=== PATIENT | male | born 1955 | race Caucasian/White ===

== ENCOUNTER 2020-09-09 13:04 | Emergency (ER) | payer MEDICARE, SELFPAY | END 2020-09-09 17:21 | disposition home or self-care (01) | LOC: CSHERS 13:04 | DX: I73.9 Peripheral vascular disease, unspecified (principal); K75.9 Inflammatory liver disease, unspecified; E80.20 Unspecified porphyria; I10 Essential (primary) hypertension; F17.210 Nicotine dependence, cigarettes, uncomplicated; Z79.899 Other long term (current) drug therapy; M79.605 Pain in left leg; M79.604 Pain in right leg | CPT/HCPCS: 93923; 93970 ==

== ENCOUNTER 2020-09-26 11:41 | Outpatient (CLI) | payer MEDICARE, SELFPAY ==
[2020-09-26 13:50] LABS: INR-International Normal Ratio 0.9; PTT 28.3 sec (22.0-33.0); Prothrombin Time 9.9 sec (9.5-12.1)
[2020-09-26 13:51] LABS: #Eosinphils 0.1 10x3/uL (0.0-0.5); #Monocytes 0.9 10x3/uL (0.0-1.1); #Neutrophils 4.1 10x3/uL (1.5-8.4); %Basophils 0.4 % (0.0-2.0); %Eosinophils 1.2 % (0.0-6.0); %Lymphocytes 44.2 % (18.0-47.0); %Monocytes 9.6 % (0.0-10.0); %Neutrophils 44.2 % (40.0-75.0); Hemoglobin 17.4 g/dL (13.5-17.5); Mean Corpuscular HGB CONC 33.9 g/dL (32.0-36.0); Mean Corpuscular Hemoglobin 30.4 pg (27.0-33.0); Mean Corpuscular Volume 89.5 fl (81.2-95.1); Mean Platelet Volume 11.2 fl (7.4-10.4); Platelet Count 219 10x3/uL (150-450); RBC Distribution Width 12.4 % (11.5-14.5); Red Blood Cell (RBC) Count 5.73 10x6/uL (4.32-5.72); White Blood Cell (WBC) Count 9.2 10x3/uL (3.5-10.5)
[2020-09-26 13:58] LABS: Anion Gap 13 mmol/L (10-20); BUN (Urea Nitrogen) 22 mg/dL (8.4-25.7); Calc. Creatinine Clearance 0 mL/min (70-130); Calcium 9.6 mg/dL (7.8-10.44); Carbon Dioxide 30 mmol/L (23-31); Chloride 98 mmol/L (98-107); Glucose 94 mg/dL (80-115); Potassium 3.6 mmol/L (3.5-5.1); Sodium 137 mmol/L (136-145)
[2020-09-26 23:52] LABS: SARS-CoV-2 PCR by NAA Not Detected (NotDetected)
== END 2020-09-26 11:42 | disposition home or self-care (01) ==
LOC: CSHLAB 11:41
PROVIDERS: ATTEND Specialist
DX: Z01.818 Encounter for other preprocedural examination (principal); Z20.822 Contact with and (suspected) exposure to COVID-19
CPT/HCPCS: 71046; 80048; 85025; 85610; 85730; 87635; U0003; U0005

== ENCOUNTER → 2020-10-01 | Day surgery (SDC) | payer MEDICARE, SELFPAY ==
[~2020-10-01] MED LIST: Adenosine 6 MG/2 ML VIAL ONE; Bivalirudin 250 MG VIAL ONE; FLU VACC QS2020-21(6MOS UP)/PF 60 MCG/0.5 ML SYRINGE IM ONE; Fentanyl 100 MCG/2 ML VIAL ONE; Heparin 10,000 UNITS/ 10 ML VIAL ONE; Lidocaine 1% (PF) 30 ML VIAL ONE; Midazolam HCl 2 mg/2 ml Vial ONE; Nitroglycerin 50 MG/250 ML BOT 250 ML ONE; Verapamil 5 MG/2 ML VIAL ONE
[2020-10-01 07:13] VITALS: BMI 19.6
== END ==
LOC: CSHSDC 06:29
PROVIDERS: ATTEND Specialist
DX: I74.09 Other arterial embolism and thrombosis of abdominal aorta (principal); I25.10 Atherosclerotic heart disease of native coronary artery without angina pectoris; I73.9 Peripheral vascular disease, unspecified; I10 Essential (primary) hypertension; F17.210 Nicotine dependence, cigarettes, uncomplicated; Z79.899 Other long term (current) drug therapy; Z79.82 Long term (current) use of aspirin; I99.8 Other disorder of circulatory system
CPT/HCPCS: 36140; 36245; 75726; 75736; 93459; 99152; 99153; J0153; J0583; J1644; J2001; J2250; J3010

== ENCOUNTER 2021-02-05 14:09 | Outpatient (CLI) | payer MEDICARE | END 2021-02-05 14:10 | disposition home or self-care (01) | LOC: CSHWCC 14:09 | PROVIDERS: ATTEND Nurse Practitioner Family | DX: I87.312 Chronic venous hypertension (idiopathic) with ulcer of left lower extremity (principal); I87.2 Venous insufficiency (chronic) (peripheral); L97.329 Non-pressure chronic ulcer of left ankle with unspecified severity; L97.829 Non-pressure chronic ulcer of other part of left lower leg with unspecified severity; I70.213 Atherosclerosis of native arteries of extremities with intermittent claudication, bilateral legs; E78.2 Mixed hyperlipidemia; B18.2 Chronic viral hepatitis C; I10 Essential (primary) hypertension; R60.0 Localized edema | CPT/HCPCS: 99213; G0463 ==

== ENCOUNTER 2021-02-23 13:48 | Outpatient (CLI) | payer MEDICARE | END 2021-02-23 13:49 | disposition home or self-care (01) | LOC: CSHMRI 13:48 | PROVIDERS: ATTEND Internal Medicine Infectious Disease | DX: M86.9 Osteomyelitis, unspecified (principal) | CPT/HCPCS: 82565 ==

== ENCOUNTER 2021-02-27 08:42 | Outpatient (CLI) | payer MEDICARE | END 2021-02-27 08:43 | disposition home or self-care (01) | LOC: CSHWCC 08:42 | PROVIDERS: ATTEND Nurse Practitioner Family | DX: I87.312 Chronic venous hypertension (idiopathic) with ulcer of left lower extremity (principal); L97.329 Non-pressure chronic ulcer of left ankle with unspecified severity; L97.824 Non-pressure chronic ulcer of other part of left lower leg with necrosis of bone; R60.0 Localized edema; E78.2 Mixed hyperlipidemia; B18.2 Chronic viral hepatitis C; I10 Essential (primary) hypertension; I70.203 Unspecified atherosclerosis of native arteries of extremities, bilateral legs | CPT/HCPCS: 99213; G0463 ==